=== PATIENT | male | born 1995 | race Caucasian/White ===

== ENCOUNTER 2017-12-22 19:27 | Emergency (ER) | payer SELFPAY ==
[~2017-12-22] VITALS: Ht 193 cm; Wt 85.6 kg
[~2017-12-22 19:27] MED LIST: AMOXICILLIN500 MG OR; ATARAX; NO; NO HOME MEDS; PROVENTIL INH17 GM IN
[2017-12-22 20:06] LABS: IMMATURE GRANULOCYTES 0.3 % (0.0-5.0); MEAN CELL VOLUME 88.5 fL CALC (80.0-100.0); MEAN CORPUSCULAR HGB 31.6 pG CALC (26.0-32.0); MEAN CORPUSCULAR HGB CONC 35.7 g/L CALC (32.0-36.0); NEUT# 7.14 thou/uL (1.82-7.42); RED BLOOD COUNT 4.18 mill/uL (4.70-6.10); RED CELL DISTRI WIDTH 11.9 % (11.5-15.5)
[2017-12-22 20:08] LABS: HEMOGLOBIN 13.2 g/dl (14.0-18.0)
[2017-12-22 20:25] LABS: INFLUENZA A NONE DETECTED (NONE DETECT); INFLUENZA B NONE DETECTED (NONE DETECT)
[2017-12-22] MEDS ORDERED: TRAMADOL HCL50 MG PO (20:45)
[2017-12-22 21:01] VITALS: BP 132/68
== END 2017-12-22 21:01 | disposition home or self-care (01) | DRG 866 ==
LOC: ED 19:27
PROVIDERS: Family Medicine
DX: B34.9 Viral infection, unspecified (principal); R50.9 Fever, unspecified; F17.200 Nicotine dependence, unspecified, uncomplicated; R09.81 Nasal congestion; R11.0 Nausea

== ENCOUNTER 2017-12-26 01:48 | Emergency (ER) | payer SELFPAY ==
[~2017-12-26] VITALS: Wt 84.6 kg
[~2017-12-26 01:48] MED LIST changes: +TRAMADOL HCL50 MG PO
[2017-12-26] MEDS ORDERED: FIORICET PO (02:28)
[2017-12-26] MEDS ORDERED: AUGMENTIN500TAB PO (02:29)
[2017-12-26 04:02] LABS: HEMATOCRIT 38.9 % (39.0-50.0); HEMOGLOBIN 13.5 g/dl (14.0-18.0); IMMATURE GRANULOCYTES 0.3 % (0.0-5.0); MEAN CELL VOLUME 88.2 fL CALC (80.0-100.0); MEAN CORPUSCULAR HGB 30.6 pG CALC (26.0-32.0); MEAN CORPUSCULAR HGB CONC 34.7 g/L CALC (32.0-36.0); NEUT# 3.03 thou/uL (1.82-7.42); RED BLOOD COUNT 4.41 mill/uL (4.70-6.10); RED CELL DISTRI WIDTH 11.6 % (11.5-15.5)
[2017-12-26 04:04] LABS: URINE BILIRUBIN - DIPSTICK NEGATIVE (NEGATIVE); URINE BLOOD DIPSTICK NEGATIVE (NEGATIVE); URINE COLOR YELLOW; URINE GLUCOSE - DIPSTICK NEGATIVE (NEGATIVE); URINE KETONE NEGATIVE (NEGATIVE); URINE LEUK ESTERASE NEGATIVE (NEGATIVE); URINE NITRITE - DIPSTICK NEGATIVE (Negative); URINE PROTEIN - DIPSTICK NEGATIVE (NEG-TRACE)
[2017-12-26 04:18] LABS: ALBUMIN 4.1 g/dL (3.2-5.0); ALKALINE PHOSPHATASE 75 u/l (38-126); BILIRUBIN, TOTAL 0.5 mg/dL (0.0-1.4); BUN 12 mg/dL (9-20); BUN/CREATININE RATIO 16 (12-20 (CALC)); CHLORIDE 100 mmol/l (95-108); CREATININE 0.8 mg/dL (0.7-1.3); GFR > 60 ML/MIN (>=60 (CALC)); GFR FOR AFR.AMER. > 60 ML/MIN (>=60 (CALC)); POTASSIUM 4.7 mmol/l (3.5-5.1); SGOT/AST 25 u/l (17-59); SGPT/ALT 47 u/l (21-72); TOTAL PROTEIN 7.4 g/dL (6.3-8.2)
[2017-12-26 04:19] LABS: ANION GAP 17 (6-22 (CALC)); CARBON DIOXIDE 33 mmol/l (22-30); SODIUM 145 mmol/l (137-146)
[2017-12-26 04:21] LABS: INFLUENZA A NONE DETECTED (NONE DETECT); INFLUENZA B NONE DETECTED (NONE DETECT)
[2017-12-26 04:22] LABS: URINE CLARITY CLEAR
[2017-12-26] MEDS ORDERED: XYLOCAINE G5 ML/TUBE EX (05:23)
[2017-12-26] MEDS ORDERED: LORTAB 1010 MG PO (05:23)
[2017-12-26] MEDS ORDERED: FLOXIN OTIC0.3 % AS (05:26)
[2017-12-26 13:36] VITALS: BP 100/52
== END 2017-12-26 13:57 | disposition home or self-care (01) | DRG 153 ==
LOC: ED 01:48
PROVIDERS: Emergency Medicine
DX: J02.0 Streptococcal pharyngitis (principal); F17.290 Nicotine dependence, other tobacco product, uncomplicated; R51 Headache
CPT/HCPCS: J0561

== ENCOUNTER 2019-11-17 14:51 | Emergency (ER) | payer SELFPAY ==
[~2019-11-17] VITALS: Ht 188 cm; Wt 100.0 kg
[~2019-11-17 14:51] MED LIST changes: +AUGMENTIN500TAB PO; +FIORICET PO; +FLOXIN OTIC0.3 % AS; +LORTAB 1010 MG PO; +XYLOCAINE G5 ML/TUBE EX
[2019-11-17 15:19] LABS: IMMATURE GRANULOCYTES 0.2 % (0.0-5.0); MEAN CELL VOLUME 87.4 fL CALC (80.0-100.0); MEAN CORPUSCULAR HGB 29.8 pG CALC (26.0-32.0); MEAN CORPUSCULAR HGB CONC 34.1 g/dL CAL (32.0-36.0); NEUT# 2.69 thou/uL (1.82-7.42); RED BLOOD COUNT 5.24 mill/uL (4.70-6.10); RED CELL DISTRI WIDTH 12.1 % (11.5-15.5)
[2019-11-17 15:20] LABS: HEMATOCRIT 45.8 % (39.0-50.0); HEMOGLOBIN 15.6 g/dl (14.0-18.0)
[2019-11-17 15:39] LABS: ALKALINE PHOSPHATASE 95 u/l (38-126); ANION GAP 12 (6-22 (CALC)); BUN 10 mg/dL (9-20); BUN/CREATININE RATIO 13 (12-20 (CALC)); CARBON DIOXIDE 31 mmol/l (22-30); CHLORIDE 101 mmol/l (95-108); CREATININE 0.8 mg/dL (0.7-1.3); GFR > 60 ML/MIN (>=60 (CALC)); GFR FOR AFR.AMER. > 60 ML/MIN (>=60 (CALC)); POTASSIUM 4.1 mmol/l (3.5-5.1); SGOT/AST 25 u/l (17-59); SODIUM 139 mmol/l (137-146)
[2019-11-17 15:45] LABS: ALBUMIN 5.2 g/dL (3.2-5.0); BILIRUBIN, TOTAL 0.7 mg/dL (0.0-1.4); TOTAL PROTEIN 8.6 g/dL (6.3-8.2)
[2019-11-17 16:09] VITALS: BP 126/58
== END 2019-11-17 16:11 | disposition home or self-care (01) | DRG 313 ==
LOC: ED 14:51
PROVIDERS: Family Medicine
DX: R07.9 Chest pain, unspecified (principal); R00.2 Palpitations; R00.1 Bradycardia, unspecified

== ENCOUNTER 2019-11-21 13:30 | Emergency (ER) | payer SELFPAY ==
[~2019-11-21] VITALS: Ht 188 cm; Wt 100.0 kg
[2019-11-21] MEDS ORDERED: BACTRIM DS1 TAB PO (13:59)
[2019-11-21] MEDS ORDERED: CIPROFLOXACN500 MG PO (13:59)
[2019-11-21 14:05] VITALS: BP 140/82
== END 2019-11-21 14:05 | disposition home or self-care (01) | DRG 605 ==
LOC: ED 13:30
DX: S91.331A Puncture wound without foreign body, right foot, initial encounter (principal); F17.200 Nicotine dependence, unspecified, uncomplicated; W45.0XXA Nail entering through skin, initial encounter; Y93.89 Activity, other specified; Y92.007 Garden or yard of unspecified non-institutional (private) residence as the place of occurrence of the external cause

== ENCOUNTER 2020-03-23 19:45 | Emergency (ER) | payer SELFPAY ==
[~2020-03-23] VITALS: Ht 193 cm; Wt 98.0 kg
[~2020-03-23 19:45] MED LIST changes: +BACTRIM DS1 TAB PO; +CIPROFLOXACN500 MG PO
[2020-03-23 20:26] LABS: HEMOGLOBIN 15.3 g/dl (14.0-18.0); IMMATURE GRANULOCYTES 0.4 % (0.0-5.0); MEAN CELL VOLUME 89.1 fL CALC (80.0-100.0); MEAN CORPUSCULAR HGB 30.3 pG CALC (26.0-32.0); NEUT# 8.07 thou/uL (1.82-7.42); RED BLOOD COUNT 5.05 mill/uL (4.70-6.10)
[2020-03-23 20:42] LABS: ALBUMIN 5.1 g/dL (3.2-5.0); BILIRUBIN, TOTAL 0.7 mg/dL (0.0-1.4); TOTAL PROTEIN 8.3 g/dL (6.3-8.2)
[2020-03-23 20:43] LABS: CREATININE 1.8 mg/dL (0.7-1.3)
[2020-03-23] MEDS ORDERED: PHENERGAN25 MG/TAB PO (22:25)
[2020-03-23 22:42] VITALS: BP 122/64
== END 2020-03-23 22:40 | disposition home or self-care (01) | DRG 392 ==
LOC: ED 19:45 → ED-I 21:30 → ED 22:40
PROVIDERS: Family Medicine
DX: A08.4 Viral intestinal infection, unspecified (principal); E86.0 Dehydration; F17.290 Nicotine dependence, other tobacco product, uncomplicated
CPT/HCPCS: Q9967

== ENCOUNTER 2020-03-27 22:01 | Emergency (ER) | payer SELFPAY ==
[~2020-03-27] VITALS: Ht 193 cm; Wt 98.0 kg
[~2020-03-27 22:01] MED LIST changes: +PHENERGAN25 MG/TAB PO
[2020-03-27 22:50] LABS: URINE BILIRUBIN - DIPSTICK NEGATIVE (NEGATIVE); URINE BLOOD DIPSTICK NEGATIVE (NEGATIVE); URINE COLOR YELLOW; URINE GLUCOSE - DIPSTICK NEGATIVE (NEGATIVE); URINE KETONE NEGATIVE (NEGATIVE); URINE LEUK ESTERASE NEGATIVE (NEGATIVE); URINE NITRITE - DIPSTICK NEGATIVE (Negative); URINE PH 7.5 (4.5-8.0); URINE PROTEIN - DIPSTICK NEGATIVE (NEG-TRACE); URINE SPECIFIC GRAVITY 1.015; URINE UROBILINOGEN - DIPSTICK 0.2 E.U./dL (0.2)
[2020-03-27 22:54] LABS: HEMATOCRIT 44.1 % (39.0-50.0); HEMOGLOBIN 14.9 g/dl (14.0-18.0); IMMATURE GRANULOCYTES 0.2 % (0.0-5.0); MEAN CELL VOLUME 89.5 fL CALC (80.0-100.0); MEAN CORPUSCULAR HGB 30.2 pG CALC (26.0-32.0); MEAN CORPUSCULAR HGB CONC 33.8 g/dL CAL (32.0-36.0); NEUT# 3.42 thou/uL (1.82-7.42); RED BLOOD COUNT 4.93 mill/uL (4.70-6.10); RED CELL DISTRI WIDTH 11.9 % (11.5-15.5)
[2020-03-27 23:04] LABS: ALBUMIN 4.8 g/dL (3.2-5.0); ALKALINE PHOSPHATASE 60 u/l (38-126); AMYLASE 77 u/l (30-110); ANION GAP 13 (6-22 (CALC)); BUN 8 mg/dL (9-20); BUN/CREATININE RATIO 7 (12-20 (CALC)); CARBON DIOXIDE 32 mmol/l (22-30); CHLORIDE 101 mmol/l (95-108); CREATININE 1.2 mg/dL (0.7-1.3); GFR > 60 ML/MIN (>=60 (CALC)); GFR FOR AFR.AMER. > 60 ML/MIN (>=60 (CALC)); LIPASE 115 u/l (23-300); POTASSIUM 4.3 mmol/l (3.5-5.1); SGOT/AST 25 u/l (17-59); SODIUM 142 mmol/l (137-146); TOTAL PROTEIN 7.9 g/dL (6.3-8.2)
[2020-03-27 23:12] LABS: BILIRUBIN, TOTAL 0.4 mg/dL (0.0-1.4)
[2020-03-28 01:44] VITALS: BP 137/73
[2020-03-28] MEDS ORDERED: TRAMADOL HYDROC50 MG PO (02:01)
[2020-03-28] MEDS ORDERED: DICYCLOMINE20 MG PO (02:01)
== END 2020-03-28 02:16 | disposition home or self-care (01) | DRG 392 ==
LOC: ED 22:01
PROVIDERS: Family Medicine
DX: R10.11 Right upper quadrant pain (principal); R11.2 Nausea with vomiting, unspecified; F17.200 Nicotine dependence, unspecified, uncomplicated
CPT/HCPCS: Q9967

== ENCOUNTER 2020-12-29 11:38 | Emergency (ER) | payer SELFPAY ==
[~2020-12-29] VITALS: Ht 193 cm; Wt 90.0 kg
[~2020-12-29 11:38] MED LIST changes: +DICYCLOMINE20 MG PO; +TRAMADOL HYDROC50 MG PO
[2020-12-29 11:57] LABS: HEMATOCRIT 45.5 % (39.0-50.0); HEMOGLOBIN 15.7 g/dl (14.0-18.0); IMMATURE GRANULOCYTES 0.1 % (0.0-5.0); MEAN CELL VOLUME 88.3 fL CALC (80.0-100.0); MEAN CORPUSCULAR HGB 30.5 pG CALC (26.0-32.0); MEAN CORPUSCULAR HGB CONC 34.5 g/dL CAL (32.0-36.0); NEUT# 4.55 thou/uL (1.82-7.42); RED BLOOD COUNT 5.15 mill/uL (4.70-6.10); RED CELL DISTRI WIDTH 11.6 % (11.5-15.5)
[2020-12-29 12:09] LABS: ALKALINE PHOSPHATASE 69 u/l (38-126); BUN 11 mg/dL (9-20); BUN/CREATININE RATIO 12 (12-20 (CALC)); CHLORIDE 103 mmol/l (95-108); CREATININE 0.9 mg/dL (0.7-1.3); ETHYL ALCOHOL 0 mg/dl (0-30); GFR > 60 ML/MIN (>=60 (CALC)); GFR FOR AFR.AMER. > 60 ML/MIN (>=60 (CALC)); LIPASE 141 u/l (23-300); MAGNESIUM 1.9 mg/dL (1.6-2.3); SGOT/AST 22 u/l (17-59); SODIUM 140 mmol/l (137-146); TOTAL PROTEIN 8.2 g/dL (6.3-8.2)
[2020-12-29 12:12] LABS: ANION GAP 18 (6-22 (CALC)); BILIRUBIN, TOTAL 1.5 mg/dL (0.0-1.4); CARBON DIOXIDE 22 mmol/l (22-30); POTASSIUM 3.4 mmol/l (3.5-5.1)
[2020-12-29 12:18] LABS: ACT PARTIAL THROMBO TIME 22.3 SECONDS (20.0-32.5); INTERNATIONAL NORMALIZED RATIO 1.3 RATIO (0.7-1.3); PROTHROMBIN TIME 13.1 SECONDS (9.0-12.5)
[2020-12-29 12:23] LABS: D-DIMER 0.17 mg/L (0.19-0.60)
[2020-12-29 12:37] LABS: URINE BILIRUBIN - DIPSTICK NEGATIVE (NEGATIVE); URINE BLOOD DIPSTICK NEGATIVE (NEGATIVE); URINE COLOR YELLOW; URINE GLUCOSE - DIPSTICK NEGATIVE (NEGATIVE); URINE KETONE >=80 mg/dL (NEGATIVE); URINE LEUK ESTERASE NEGATIVE (NEGATIVE); URINE PROTEIN - DIPSTICK NEGATIVE (NEG-TRACE); URINE UROBILINOGEN - DIPSTICK 0.2 E.U./dL (0.2)
[2020-12-29 12:38] LABS: URINE NITRITE - DIPSTICK NEGATIVE (Negative)
[2020-12-29 12:39] LABS: TSH, 3RD GENERATION 0.48 uIU/mL (0.47 - 4.68)
[2020-12-29 14:17] VITALS: BP 131/69
== END 2020-12-29 14:36 | disposition short-term general hospital (02) | DRG 309 ==
LOC: ED 11:38
DX: I47.1 Supraventricular tachycardia (principal); E87.2 Acidosis; E87.6 Hypokalemia; F17.200 Nicotine dependence, unspecified, uncomplicated; Z82.49 Family history of ischemic heart disease and other diseases of the circulatory system; Z20.822 Contact with and (suspected) exposure to COVID-19
CPT/HCPCS: J2060

== ENCOUNTER 2021-01-14 08:06 | Emergency (ER) | payer SELFPAY ==
[~2021-01-14] VITALS: Ht 188 cm; Wt 90.0 kg
[2021-01-14] MEDS ORDERED: ESCITALOPRAM OX10 MG PO (09:13)
[2021-01-14] MEDS ORDERED: LORAZEPAM0.5 MG PO (09:13)
[2021-01-14] MEDS ORDERED: HYDROXYZ HCL25 MG PO (09:13)
[2021-01-14] MEDS ORDERED: LEXAPRO10 MG PO (09:17)
[2021-01-14] MEDS ORDERED: VISTARIL 50MG C50 M1 PO (09:17)
[2021-01-14] MEDS ORDERED: ATIVAN1 MG PO (09:17)
[2021-01-14 09:29] VITALS: BP 140/80
== END 2021-01-14 09:33 | disposition home or self-care (01) | DRG 880 ==
LOC: ED 08:06
DX: F41.9 Anxiety disorder, unspecified (principal); U07.1 COVID-19; T42.4X6A Underdosing of benzodiazepines, initial encounter; T43.596A Underdosing of other antipsychotics and neuroleptics, initial encounter; T43.226A Underdosing of selective serotonin reuptake inhibitors, initial encounter; Z91.128 Patient's intentional underdosing of medication regimen for other reason

== ENCOUNTER 2021-02-04 01:41 | Emergency (ER) | payer SELFPAY ==
[~2021-02-04] VITALS: Ht 193 cm; Wt 84.0 kg
[~2021-02-04 01:41] MED LIST changes: +ATIVAN1 MG PO; +ESCITALOPRAM OX10 MG PO; +HYDROXYZ HCL25 MG PO; +LEXAPRO10 MG PO; +LORAZEPAM0.5 MG PO; +VISTARIL 50MG C50 M1 PO
[2021-02-04] MEDS ORDERED: FISH OIL1000 MG PO (02:10)
[2021-02-04] MEDS ORDERED: B NATURAL PO (02:11)
[2021-02-04] MEDS ORDERED: B6 NATURAL100 MG PO (02:12)
[2021-02-04] MEDS ORDERED: B121000 MCG PO (02:12)
[2021-02-04] MEDS ORDERED: MAGNESIUM400 M1 PO (02:14)
[2021-02-04] MEDS ORDERED: OS-CAL 500500 M1 PO (02:14)
[2021-02-04] MEDS ORDERED: ZINC30 M1 PO (02:15)
[2021-02-04] MEDS ORDERED: VITAMIN E400 UNIT PO (02:16)
[2021-02-04] MEDS ORDERED: POTASSIUM99 MG PO (02:17)
[2021-02-04] MEDS ORDERED: D3400 UNI1 PO (02:18)
[2021-02-04] MEDS ORDERED: BIOTIN1000 MCG PO (02:18)
[2021-02-04] MEDS ORDERED: GARLIC1000 MG PO (02:19)
[2021-02-04 02:20] LABS: HEMOGLOBIN 15.5 g/dl (14.0-18.0); IMMATURE GRANULOCYTES 0.1 % (0.0-5.0); MEAN CELL VOLUME 89.1 fL CALC (80.0-100.0); MEAN CORPUSCULAR HGB 30.7 pG CALC (26.0-32.0); MEAN CORPUSCULAR HGB CONC 34.4 g/dL CAL (32.0-36.0); NEUT# 4.27 thou/uL (1.82-7.42); RED BLOOD COUNT 5.05 mill/uL (4.70-6.10); RED CELL DISTRI WIDTH 12.1 % (11.5-15.5)
[2021-02-04] MEDS ORDERED: MAGNESIUM250 M1 PO (02:21)
[2021-02-04] MEDS ORDERED: IRON27 MG PO (02:23)
[2021-02-04] MEDS ORDERED: VITAMIN C500 M6 PO (02:24)
[2021-02-04] MEDS ORDERED: ASPIRIN81 MG PO (02:24)
[2021-02-04] MEDS ORDERED: SUCRALFATE1 GM PO (02:25)
[2021-02-04] MEDS ORDERED: LORAZEPAM0.5 MG PO (02:26)
[2021-02-04] MEDS ORDERED: ESCITALOPRAM OX10 MG PO (02:27)
[2021-02-04] MEDS ORDERED: VISTARIL 50MG C50 M1 PO (02:28)
[2021-02-04] MEDS ORDERED: ODANSETRON (02:28)
[2021-02-04] MEDS ORDERED: MESALAMINE E0.375 GM PO (02:29)
[2021-02-04 02:33] LABS: URINE BILIRUBIN - DIPSTICK NEGATIVE (NEGATIVE); URINE BLOOD DIPSTICK NEGATIVE (NEGATIVE); URINE COLOR YELLOW; URINE GLUCOSE - DIPSTICK NEGATIVE (NEGATIVE); URINE KETONE NEGATIVE (NEGATIVE); URINE LEUK ESTERASE NEGATIVE (NEGATIVE); URINE PH 7.5 (4.5-8.0); URINE PROTEIN - DIPSTICK NEGATIVE (NEG-TRACE); URINE SPECIFIC GRAVITY 1.015; URINE UROBILINOGEN - DIPSTICK 0.2 E.U./dL (0.2)
[2021-02-04 02:34] LABS: URINE NITRITE - DIPSTICK NEGATIVE (Negative)
[2021-02-04 02:37] LABS: ALBUMIN 4.9 g/dL (3.2-5.0); ALKALINE PHOSPHATASE 69 u/l (38-126); BUN 18 mg/dL (9-20); BUN/CREATININE RATIO 22 (12-20 (CALC)); CHLORIDE 101 mmol/l (95-108); CREATININE 0.8 mg/dL (0.7-1.3); GFR > 60 ML/MIN (>=60 (CALC)); GFR FOR AFR.AMER. > 60 ML/MIN (>=60 (CALC)); POTASSIUM 3.5 mmol/l (3.5-5.1); SGOT/AST 25 u/l (17-59); SODIUM 142 mmol/l (137-146); TOTAL PROTEIN 8.2 g/dL (6.3-8.2)
[2021-02-04 02:42] LABS: ANION GAP 14 (6-22 (CALC)); BILIRUBIN, TOTAL 0.6 mg/dL (0.0-1.4); CARBON DIOXIDE 31 mmol/l (22-30)
[2021-02-04 02:53] LABS: MYOGLOBIN 16 ng/mL (0 - 121)
[2021-02-04 03:18] LABS: TSH, 3RD GENERATION 1.74 uIU/mL (0.47 - 4.68)
[2021-02-04 04:22] VITALS: BP 118/77
== END 2021-02-04 04:55 | disposition home or self-care (01) | DRG 880 ==
LOC: ED 01:41
PROVIDERS: Emergency Medicine
DX: F41.9 Anxiety disorder, unspecified (principal); Z86.16 Personal history of COVID-19

== ENCOUNTER 2022-04-09 09:58 | Emergency (ER) | payer OTHER ==
[~2022-04-09] VITALS: Ht 193 cm; Wt 86.0 kg
[2022-04-09] VITALS (12 sets, daily range): BP systolic 129–156; BP diastolic 73–96
[~2022-04-09 09:58] MED LIST changes: +ASPIRIN81 MG PO; +B NATURAL PO; +B121000 MCG PO; +B6 NATURAL100 MG PO; +BIOTIN1000 MCG PO; +D3400 UNI1 PO; +FISH OIL1000 MG PO; +GARLIC1000 MG PO; +IRON27 MG PO; +MAGNESIUM250 M1 PO; +MAGNESIUM400 M1 PO; +MESALAMINE E0.375 GM PO; +ODANSETRON; +OS-CAL 500500 M1 PO; +POTASSIUM99 MG PO; +SUCRALFATE1 GM PO; +VITAMIN C500 M6 PO; +VITAMIN E400 UNIT PO; +ZINC30 M1 PO
[2022-04-09 10:18] LABS: HEMATOCRIT 43.7 % (39.0-50.0); HEMOGLOBIN 15.7 g/dl (14.0-18.0); IMMATURE GRANULOCYTES 0.6 % (0.0-5.0); MEAN CELL VOLUME 87.1 fL CALC (80.0-100.0); MEAN CORPUSCULAR HGB 31.3 pG CALC (26.0-32.0); MEAN CORPUSCULAR HGB CONC 35.9 g/dL CAL (32.0-36.0); NEUT# 7.09 thou/uL (1.82-7.42); RED BLOOD COUNT 5.02 mill/uL (4.70-6.10); RED CELL DISTRI WIDTH 11.8 % (11.5-15.5)
[2022-04-09 10:41] LABS: ALBUMIN 4.9 g/dL (3.2-5.0); ALKALINE PHOSPHATASE 72 u/l (38-126); BUN 10 mg/dL (9-20); BUN/CREATININE RATIO 12 (12-20 (CALC)); CHLORIDE 104 mmol/l (95-108); CREATININE 0.9 mg/dL (0.7-1.3); GFR FOR AFR.AMER. > 60 ML/MIN (>=60 (CALC)); GFR OTHER RACES > 60 ML/MIN (>=60 (CALC)); MAGNESIUM 1.8 mg/dL (1.6-2.3); POTASSIUM 3.3 mmol/l (3.5-5.1); SGOT/AST 26 u/l (17-59); SODIUM 142 mmol/l (137-146)
[2022-04-09 10:46] LABS: ANION GAP 18 (6-22 (CALC)); BILIRUBIN, TOTAL 1.1 mg/dL (0.0-1.4); CARBON DIOXIDE 23 mmol/l (22-30)
[2022-04-09 11:12] LABS: TSH, 3RD GENERATION 0.62 uIU/mL (0.47 - 4.68)
== END 2022-04-09 12:29 | disposition home or self-care (01) | DRG 310 ==
LOC: ED 09:58
PROVIDERS: Family Medicine
DX: R00.2 Palpitations (principal); Z86.16 Personal history of COVID-19; Z20.822 Contact with and (suspected) exposure to COVID-19; F41.9 Anxiety disorder, unspecified